=== PATIENT | female | born 1960 | race African-American/Black ===

== ENCOUNTER 2017-01-19 13:31 | Emergency (ER) | payer OTHER ==
[~2017-01-19] VITALS: Ht 157.5 cm; Wt 132.0 kg
[~2017-01-19 13:31] MED LIST: AMLO5 PO; HYDR12.56 PO; METF500 PO; SM A81CH CHEW; TOPR200T PO; ZOFR4TAB3 SL
[2017-01-19 13:39] VITALS: BP 136/76; PULSE 90; RESP 18; TEMP 99.1; O2SAT 100
[2017-01-19] MEDS ORDERED: TOPR100T PO (13:51)
[2017-01-19] MEDS ORDERED: ASPI1TAB69 PO (13:51)
[2017-01-19] MEDS ORDERED: AMLO10 PO (13:51)
[2017-01-19] MEDS ORDERED: HYDR12.56 PO (13:51)
[2017-01-19] MEDS ORDERED: METF500T PO (13:51)
[2017-01-19] MEDS ORDERED: PRED20 PO (13:57)
[2017-01-19] MEDS ORDERED: ZITHTAB PO (13:57)
--- NOTE | 2017-01-19 14:02 | PD ---
HPI Chief Complaint: Cold / Flu Symptoms Time Seen by Provider: 13:44 Travel History International Travel<30 days: No Contact w/Intl Traveler<30days: No Traveled to known affect area: No History of Present Illness HPI The patient was seen and examined in the presence of the nurse. She complains of cough and congestion. She tells me straight up she wants a Z-Brendon and a prednisone prescription. Denies fever. Not short of breath. Nonsmoker. Symptoms severity is mild PFSH Past Medical History Hx Anticoagulant Therapy: Yes (BABY ASA) Arthritis: Yes (knees) Asthma: Yes Blood Disorders: No Heart Rhythm Problems: Yes (tachycardia, palpitations) Cancer: No Cardiovascular Problems: Yes (HTN) High Cholesterol: No Chemotherapy: No Cerebrovascular Accident: No Diabetes: Yes Patient Takes Glucophage: Yes (METFORMIN) Diminished Hearing: No Endocrine: Yes Gastrointestinal Disorders: Yes Genitourinary: No Hypertension: Yes Immune Disorder: No Implanted Vascular Access Dvce: No Musculoskeletal: Yes Neurologic: No Psychiatric: No Reproductive: No Respiratory: Yes Immunizations Current: Yes Tetanus Vaccination: > 5 Years Influenza Vaccination: No ?: Not Menopausal: Yes : 3 Para: 3 Ectopic : Yes Past Surgical History Abdominal Surgery: Yes (appendectomy) Appendectomy: Yes Gynecologic Surgery: Yes (tubal removal right fallopian tube) Hysterectomy: No Other Surgery: Yes (ECTOPIC ) Social History Alcohol Use: No Tobacco Use: No (QUIT ) Substance Use: No Allergies-Medications (Allergen,Severity, Reaction): Coded Allergies: Tessalon Perles (Verified Allergy, Unknown, shortness of breath, 01/19/17) Lisinopril (Unverified Adverse Reaction, Unknown, Shortness of Breath, ) UNCONTROLLABLE COUGH Uncoded Allergies: UNKNOWN UTI MED (Allergy, Intermediate, SOB, DRY MOUTH, 08/02/14) Reported Meds & Prescriptions Reported Meds & Active Scripts Active Zithromax Z-Brendon (Azithromycin) 250 Mg Dspk 250 Mg PO DIRECTED 500 MG (2 tabs) day 1, then 1 tab days 2-5. Prednisone 20 Mg Tab 20 Mg PO DAILY Reported Toprol XL (Metoprolol Succinate) 100 Mg Tab 100 Mg PO DAILY Hydrochlorothiazide 12.5 Mg Tab 12.5 Mg PO DAILY Metformin (Metformin HCl) 500 Mg Tab 500 Mg PO DAILY With a meal Aspirin 81 Mg Tabdr 81 Mg PO DAILY Norvasc (Amlodipine Besylate) 10 Mg Tab 10 Mg PO DAILY Review of Systems General / Constitutional: No: Fever HENT: No: Headaches Cardiovascular: No: Chest Pain or Discomfort Respiratory: Positive: Cough Physical Exam Narrative RESPIRATORY: Respiratory effort unlabored, no retractions or use of accessory muscles. Breath sounds are clear and symmetric. NECK: Symmetrical appearance, midline trachea. No mass or crepitus. Thyroid without enlargement, tenderness, or mass. CARDIOVASCULAR: Regular rate and rhythm without murmur. Extremities showed no edema or varicosities. SKIN: Focused skin assessment reveals no rash or ulcers. Skin is warm and dry. Palpation shows no induration or nodules. Data Data Last Documented VS Vital Signs Date Time Temp Pulse Resp B/P Pulse Ox O2 Delivery O2 Flow Rate FiO2 01/19/17 13:52 Room Air 01/19/17 13:39 99.1 90 18 136/76 100 MDM Medical Decision Making Medical Screen Exam Complete: Yes Emergency Medical Condition: Yes Medical Record Reviewed: Yes Differential Diagnosis Bronchitis, URI, pneumonia Narrative Course I have reviewed the patient's electronic medical record. Presentation is fairly mild and benign. She is insistent on Zithromax and prednisone and I've written them. Diagnosis Primary Impression: Bronchitis Additional Instructions: The patient was advised to follow up with their physician and return if they worsen. Med/Other Pt SpecificInfo: Prescription(s) given Scripts Azithromycin (Zithromax Z-Brendon)250 Mg [id number] Mg PO DIRECTED #1 DSPK Ref 0 500 MG (2 tabs) day 1, then 1 tab days 2-5. Prov:Eren Matta MD 01/19/17 Prednisone 20 Mg Tab20 Mg PO DAILY #5 TAB Ref 0 Prov:Eren Matta MD 01/19/17 Disposition: 01 DISCHARGE HOME Condition: Stable Eren Matta MD Jan 19, 2017 14:01
== END 2017-01-19 14:36 | disposition home or self-care (01) ==
LOC: PHED 13:31
DX: J40 Bronchitis, not specified as acute or chronic (principal); I10 Essential (primary) hypertension; E11.9 Type 2 diabetes mellitus without complications
CPT/HCPCS: 99283

== ENCOUNTER 2017-05-02 11:27 | Emergency (ER) | payer OTHER ==
[~2017-05-02] VITALS: Ht 157.5 cm; Wt 130.0 kg
[~2017-05-02 11:27] MED LIST changes: +AMLO10 PO; -AMLO5 PO; +ASPI1TAB69 PO; -METF500 PO; +METF500T PO; +PRED20 PO; -SM A81CH CHEW; +TOPR100T PO; -TOPR200T PO; +ZITHTAB PO; -ZOFR4TAB3 SL
[2017-05-02 11:33] VITALS: BP 161/67; PULSE 83; RESP 16; TEMP 98.5; O2SAT 98
[2017-05-02] MEDS ORDERED: ASPI81CH CHEW (11:39)
[2017-05-02] MEDS ORDERED: KETOROLAC TROMETHAMINE 60 MG/2 ML (IM) VIAL IM ONE (12:00)
[2017-05-02] MEDS ORDERED: PRED20 PO (12:02)
[2017-05-02] MEDS ORDERED: IBUP800T23 PO (12:02)
--- NOTE | 2017-05-02 12:16 | PD ---
HPI Chief Complaint: Musculoskeletal Complaint Time Seen by Provider: 12:03 Travel History International Travel<30 days: No Contact w/Intl Traveler<30days: No Traveled to known affect area: No History of Present Illness HPI 56-year-old female that presents to the ED for evaluation of right hand pain. Patient has had this for about 3-4 days. Per patient the pain is mainly on the palmar aspect of the third digit. Per patient is gets worse when she flexes the digit. 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 She states that her finger feels like it gets stuck and flexion and she cannot completely flex it unless it's manipulated by her or someone else. Most of the pain appears to be on the palmar aspect of the hand and not really on the finger. She denies ever having anything like this before. She does have a history of diabetes. Per patient the pain is significant 6 out of 10. No fevers chills or sweats. No cuts. No changes in coloration of the skin. No numbness, tilling, weakness. PFSH Past Medical History Hx Anticoagulant Therapy: Yes (BABY ASA) Arthritis: Yes (knees) Asthma: Yes Blood Disorders: No Heart Rhythm Problems: Yes (tachycardia, palpitations) Cancer: No Cardiovascular Problems: Yes (HTN) High Cholesterol: No Chemotherapy: No Cerebrovascular Accident: No Diabetes: Yes Patient Takes Glucophage: Yes Diminished Hearing: No Endocrine: Yes Gastrointestinal Disorders: Yes Genitourinary: No Hypertension: Yes Immune Disorder: No Implanted Vascular Access Dvce: No Musculoskeletal: Yes Neurologic: No Psychiatric: No Reproductive: No Respiratory: Yes Immunizations Current: Yes Influenza Vaccination: No ?: Not Menopausal: Yes : 3 Para: 3 Ectopic : Yes Past Surgical History Abdominal Surgery: Yes (appendectomy) Appendectomy: Yes Gynecologic Surgery: Yes (tubal removal right fallopian tube) Hysterectomy: No Other Surgery: Yes (ECTOPIC ) Social History Alcohol Use: No Tobacco Use: No (QUIT ) Substance Use: No Allergies-Medications (Allergen,Severity, Reaction): Coded Allergies: Tessalon Perles (Verified Allergy, Unknown, shortness of breath, 05/02/17) Lisinopril (Unverified Adverse Reaction, Unknown, Shortness of Breath, ) UNCONTROLLABLE COUGH Uncoded Allergies: UNKNOWN UTI MED (Allergy, Intermediate, SOB, DRY MOUTH, 08/02/14) Reported Meds & Prescriptions Reported Meds & Active Scripts Active Keflex (Cephalexin) 500 Mg Capsule 500 Mg PO Q8H 10 Days Clindamycin (Clindamycin HCl) 150 Mg Cap 300 Mg PO Q6H 10 Days Ibuprofen 800 Mg Tab 800 Mg PO Q8H PRN Reported Aspirin 81 Mg Chew 81 Mg CHEW DAILY Toprol XL (Metoprolol Succinate) 100 Mg Tab 100 Mg PO DAILY Hydrochlorothiazide 12.5 Mg Tab 12.5 Mg PO DAILY Metformin (Metformin HCl) 500 Mg Tab 500 Mg PO DAILY With a meal Norvasc (Amlodipine Besylate) 10 Mg Tab 10 Mg PO DAILY Review of Systems Except as stated in HPI: all other systems reviewed are Neg Physical Exam Narrative GENERAL: SKIN: Warm and dry. HEAD: Atraumatic. Normocephalic. EYES: Pupils equal and round. No scleral icterus. No injection or drainage. ENT: No nasal bleeding or discharge. Mucous membranes pink and moist. Tongue is midline. No uvula deviation. NECK: Trachea midline. No JVD. CARDIOVASCULAR: Regular rate and rhythm. No murmurs, S3, S4. RESPIRATORY: No accessory muscle use. Clear to auscultation. Breath sounds equal bilaterally. GASTROINTESTINAL: Abdomen soft, non-tender, nondistended. Hepatic and splenic margins not palpable. MUSCULOSKELETAL: Extremities without clubbing, cyanosis, or edema. No obvious deformities. Full range of motion of all fingers with the exception of the right third digit which she cannot completely flex at the PIP joint actively but able to do it passively. She does appear to have some swelling and point tenderness on the palmar aspect of the flexor tendon of the third digit. No obvious erythema or mass noted. Good capillary refill. Sensation intact bilaterally. NEUROLOGICAL: Awake and alert. No obvious cranial nerve deficits. Motor grossly within normal limits. Five out of 5 muscle strength in the arms and legs. Normal speech. PSYCHIATRIC: Appropriate mood and affect; insight and judgment normal. Data Data Last Documented VS Vital Signs Date Time Temp Pulse Resp B/P Pulse Ox O2 Delivery O2 Flow Rate FiO2 05/02/17 12:26 18 05/02/17 11:33 98.5 83 161/67 98 Orders Hand, Limited (2vws) (05/02/17 ) Ketorolac Inj (Toradol Inj) (05/02/17 12:00) Splint Or Brace Apply/Monitor (05/02/17 12:03) Clindamycin (Cleocin) (05/02/17 12:30) Oxycodone-Acetamin 10-325 Mg (Percocet 1 (05/02/17 12:30) MDM Medical Decision Making Medical Screen Exam Complete: Yes Emergency Medical Condition: Yes Medical Record Reviewed: Yes Interpretation(s) X-ray of the right hand was negative for acute disease. Differential Diagnosis Tenosynovitis versus trigger finger versus fracture versus do retrains contracture Narrative Course 56-year-old female that presents to the ED for evaluation of right hand injury. Patient was properly examined and was found to have signs and symptoms very consistent what appears to be tenosynovitis. This does not appear to be infectious. To me this appears to be more mechanical likely secondary from injury. She does have a history of diabetes. 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 She is able to extend and flex it but not fully without assistance. No sign of infection noted. This time I recommend trial of anti-inflammatories and x-ray. X-ray was negative for acute disease. Patient was reassured. My attending Dr. Wilder evaluated the patient with me and he recommends trial of antibiotics secondary to possible cellulitis of the area. He recommends close follow-up in the next 48 hours. Patient still states that she still in pain even after Toradol shot. She was given Percocet here in the ED. She will be given prescriptions for Bactrim, Keflex as well as ibuprofen. She was given information for doctor at urology to follow-up outpatient. See ED if worsening symptoms. Follow up with PCP. Diagnosis Primary Impression: Cellulitis Qualified Code: L03.113 - Cellulitis of right upper extremity Additional Impression: Hand pain Qualified Code: M79.641 - Pain of right hand Referrals: Dann Amaya MD Patient Instructions: General Instructions, Narcotic given in the ED Additional Instructions: Take medications as prescribed. Follow-up with hand surgeon See ED for any worsening symptoms. Do not drink or drive while taking pain medication. Apply ice or heat as needed for pain Med/Other Pt SpecificInfo: Prescription(s) given Scripts Cephalexin (Keflex)500 Mg [id number] Mg PO Q8H 10 Days Ref 0 Prov:Trip Posada MD 05/02/17 Clindamycin 150 Mg [id number] Mg PO Q6H 10 Days Prov:Trip Posada MD 05/02/17 Ibuprofen 800 Mg [id number] Mg PO Q8H PRN (Pain/Inflammation) #30 TAB Prov:Trip Posada MD 05/02/17 Disposition: 01 DISCHARGE HOME Condition: Nicholas Gage May 02, 2017 12:16
[2017-05-02] MEDS ORDERED: CEPH-460 PO (12:19)
[2017-05-02] MEDS ORDERED: CLIN1CAP5 PO (12:19)
[2017-05-02 12:26] VITALS: RESP 18
[2017-05-02] MEDS ORDERED: oxyCODONE/ACETAMINOPHEN 10 MG/325 MG TAB PO ONE (12:30)
[2017-05-02] MEDS ORDERED: CLINDAMYCIN 150 MG CAP PO ONE (12:30)
--- NOTE | 2017-05-02 12:34 | RADRPT ---
EXAM DATE/TIME: 05/02/2017 12:15 [facility] COMPARISON: No previous studies available for comparison. INDICATIONS : Right hand 3rd digit pain, no known injury. MEDICAL HISTORY : None. SURGICAL HISTORY : None. ENCOUNTER: Initial ACUITY: 3 days PAIN SCORE: 7/10 LOCATION: Right 3rd digit FINDINGS: Two view examination of the right hand demonstrates no soft tissue swelling, dislocation, or fracture . The joint spaces are maintained. Bony mineralization is normal. CONCLUSION: Unremarkable limited examination of the right hand. Nakul Whitmore MD on May 02, 2017 at 12:32 Board Certified Radiologist. This report was verified electronically.
== END 2017-05-02 12:46 | disposition home or self-care (01) ==
LOC: PHEFT 11:27
DX: L03.113 Cellulitis of right upper limb (principal); M79.641 Pain in right hand; E11.9 Type 2 diabetes mellitus without complications; I10 Essential (primary) hypertension; Z79.84 Long term (current) use of oral hypoglycemic drugs; Z87.891 Personal history of nicotine dependence
CPT/HCPCS: 73120; 96372; 99284; J1885; L3908

== ENCOUNTER 2017-12-11 23:32 | Emergency (ER) | payer OTHER ==
[~2017-12-11] VITALS: Ht 157.5 cm; Wt 138.1 kg
[~2017-12-11 23:32] MED LIST changes: +ASPI-516 CHEW; -ASPI1TAB69 PO; +CEPH-460 PO; +CLIN150C14 PO; +IBUP1TAB7 PO; -PRED20 PO; -ZITHTAB PO
[2017-12-11 23:37] VITALS: BP 147/70; PULSE 80; RESP 14; TEMP 97.8; O2SAT 96
--- NOTE | 2017-12-12 00:06 | PD ---
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 She felt her leg on the left hyperextended now she is having left knee pain as well as left inguinal groin area pain. This happened 10 hours prior to arrival in the ER have been the beginning of her shift and after her shift was over at midnight she comes to the ER. She has a history of osteoarthritis in that knee and is actually scheduled to see an orthopedist on the of this month for possible arthroscopic she is complaining of tenderness to the patella that radiates up the lateral aspect of her left knee she is not taking any medication to alleviate the symptoms she demonstrates the ER after she got off of her job she has been able to ambulate on it since then PFSH Past Medical History Hx Anticoagulant Therapy: Yes (BABY ASA) Arthritis: Yes (knees) Asthma: Yes Blood Disorders: No Heart Rhythm Problems: Yes (tachycardia, palpitations) Cancer: No Cardiovascular Problems: Yes (HTN) High Cholesterol: No Chemotherapy: No Cerebrovascular Accident: No Diabetes: Yes Diminished Hearing: No Endocrine: Yes Gastrointestinal Disorders: Yes Genitourinary: No Hypertension: Yes Immune Disorder: No Implanted Vascular Access Dvce: No Musculoskeletal: Yes Neurologic: No Psychiatric: No Reproductive: No Respiratory: Yes Immunizations Current: Yes Menopausal: Yes : 3 Para: 3 Ectopic : Yes Past Surgical History Abdominal Surgery: Yes (appendectomy) Appendectomy: Yes Gynecologic Surgery: Yes (tubal removal right fallopian tube) Hysterectomy: No Other Surgery: Yes (ECTOPIC ) Social History Alcohol Use: No Tobacco Use: No (QUIT ) Substance Use: No Allergies-Medications (Allergen,Severity, Reaction): Coded Allergies: benzonatate (Unverified Allergy, Unknown, shortness of breath, 12/12/17) lisinopril (Unverified Adverse Reaction, Unknown, Shortness of Breath, 12/12) UNCONTROLLABLE COUGH Uncoded Allergies: UNKNOWN UTI MED (Allergy, Intermediate, SOB, DRY MOUTH, 08/02/14) Reported Meds & Prescriptions Reported Meds & Active Scripts Active Ibuprofen 800 Mg Tab 800 Mg PO Q8H PRN Reported Aspirin 81 Mg Chew 81 Mg CHEW DAILY Toprol XL (Metoprolol Succinate) 100 Mg Tab 100 Mg PO DAILY Hydrochlorothiazide 12.5 Mg Tab 12.5 Mg PO DAILY Metformin (Metformin HCl) 500 Mg Tab 500 Mg PO DAILY With a meal Norvasc (Amlodipine Besylate) 10 Mg Tab 10 Mg PO DAILY Review of Systems Except as stated in HPI: all other systems reviewed are Neg Musculoskeletal: Positive: Myalgias, Arthralgias (left knee and hip pain from hyperextending fall slip) Physical Exam Narrative GENERAL: In no apparent distress in no apparent pain morbidly obese SKIN: Warm and dry. HEAD: Atraumatic. Normocephalic. EYES: Pupils equal and round. No scleral icterus. No injection or drainage. ENT: No nasal bleeding or discharge. Mucous membranes pink and moist. NECK: Trachea midline. No JVD. CARDIOVASCULAR: Regular rate and rhythm. RESPIRATORY: No accessory muscle use. Clear to auscultation. Breath sounds equal bilaterally. GASTROINTESTINAL: Abdomen soft, non-tender, nondistended. Hepatic and splenic margins not palpable. MUSCULOSKELETAL: Extremities left knee tender on the lateral collateral ligament area as well as the lateral patella left side with slight swelling left more swollen than right. NEUROLOGICAL: Awake and alert. No obvious cranial nerve deficits. Motor grossly within normal limits. Five out of 5 muscle strength in the arms and legs. Normal speech. PSYCHIATRIC: Appropriate mood and affect; insight and judgment normal. Data Data Last Documented VS Vital Signs Date Time Temp Pulse Resp B/P (MAP) Pulse Ox O2 Delivery O2 Flow Rate FiO2 12/12/17 00:53 12/12/17 00:33 20 12/11/17 23:37 97.8 80 96 Orders Orders Ketorolac Inj (Toradol Inj) (12/12/17 00:15) Hussain Bandage (12/12/17 00:01) [facility] Medical Decision Making Medical Screen Exam Complete: Yes Emergency Medical Condition: Yes Differential Diagnosis Differential diagnosis includes ligamentous sprain versus strain versus contusion versus effusion versus fracture Narrative Course Physical exam does not rule out any need for x-rays at this time she has a follow-up appointment with an orthopedist the 15 of this month I give her Toradol IM Hussain wrap and then give HER-2 days off to rest her knee elevate ice and follow-up orthopedist Diagnosis Primary Impression: Knee strain Qualified Codes: S86.912A - Strain of unspecified muscle(s) and tendon(s) at lower leg level, left leg, initial encounter Departure Forms: Work Release Additional Instructions: Patient is to remain at home and ice and elevate her left knee may return to work in December 14, 2017 Jared Musa MD Dec 12, 2017 00:06
[2017-12-12] MEDS ORDERED: KETOROLAC TROMETHAMINE 60 MG/2 ML (IM) VIAL IM ONE (00:15)
== END 2017-12-12 00:55 | disposition home or self-care (01) ==
LOC: PHED 23:32
DX: S86.912A Strain of unspecified muscle(s) and tendon(s) at lower leg level, left leg, initial encounter (principal); W01.0XXA Fall on same level from slipping, tripping and stumbling without subsequent striking against object, initial encounter; Y93.F1 Activity, caregiving, bathing; Y99.0 Civilian activity done for income or pay
CPT/HCPCS: 96372; 99283; J1885